=== PATIENT | female | born 1990 | race Hispanic/Latino ===

== ENCOUNTER 2024-02-24 02:51 | Inpatient (IN) | payer BC ==
[2024-02-24] MEDS ORDERED: Sodium Chloride 0.9% 20 ML SDV IV PRN (03:26)
[2024-02-24] MEDS ORDERED: Sodium Chloride 0.9% 10 ML Syringe FLUSH PRN (03:26)
[2024-02-24] MEDS ORDERED: Carboprost Tromethamine 250 MCG/1 mL Vial IM PRN (03:26)
[2024-02-24] MEDS ORDERED: Sodium Chloride 0.9% 2.5 ML Syringe FLUSH PRN (03:26)
[2024-02-24] MEDS ORDERED: Methylergonovine 0.2 MG/1 ML Amp IM PRN (03:26)
[2024-02-24] MEDS ORDERED: Ondansetron 4 MG/2 ML SDV IVPUSH PRN (03:26)
[2024-02-24] MEDS ORDERED: Misoprostol 200 MCG Tab PO PRN (03:26)
[2024-02-24] MEDS: Lactated Ringers 1,000 ML IV SCH (03:59)
[2024-02-24 04:14] LABS: HEMATOCRIT 36.3 % (37.0-47.0); HEMOGLOBIN 11.6 g/dL (12.0-16.0); MEAN CORPUSCULAR HEMOGLOBIN 25.5 pg (28.0-32.0); MEAN CORPUSCULAR VOLUME 79.8 fL (83.0-99.0); MEAN PLATELET VOLUME 9.8 fL (9.4-12.3); PLATELET COUNT,PLT 200 K/uL (150-400); RED BLOOD CELL COUNT 4.55 M/uL (4.10-5.30); WHITE BLOOD CELL COUNT,WBC 9.75 K/uL (3.9-11.3)
[2024-02-24 04:16] LABS: APPEARANCE,URINE CLEAR; BILIRUBIN,URINE NEGATIVE (NEGATIVE); COLOR,URINE YELLOW; GLUCOSE,URINE NEGATIVE (NEGATIVE); KETONES,URINE TRACE mg/dL (NEGATIVE); LEUKOCYTE ESTERASE,URINE TRACE (NEGATIVE); NITRITE,URINE NEGATIVE (NEGATIVE); OCCULT BLOOD,URINE SMALL (NEGATIVE); PROTEIN,URINE NEGATIVE (NEGATIVE); UROBILINOGEN,URINE 0.2 EU/dL (<2.0)
[2024-02-24 04:23] LABS: AMORPHOUS SEDIMENT,URINE FEW (NEGATIVE); BACTERIA,URINE FEW (NEGATIVE); EPITHELIAL CELLS,URINE FEW (NONE-FEW); MUCUS,URINE OCCASIONAL (NONE-MOD); RBC,URINE 0-1 (0-2/HPF)
[2024-02-24 04:53] LABS: A/G RATIO 0.5 (0.9-1.6); ALBUMIN 2.7 g/dL (3.4-5.0); BILIRUBIN TOTAL 0.4 mg/dL (0.2-1.0); CALCIUM 8.8 mg/dL (8.5-10.1); CARBON DIOXIDE,CO2 22.3 mmol/L (21.0-32.0); CREATININE 0.6 mg/dL (0.6-1.0); EST CRCL DRUG DOSING (CG) 142.87 mL/min; POTASSIUM,K 4.1 mmol/L (3.5-5.1); PROTEIN TOTAL,TP 7.7 g/dL (6.4-8.2)
[2024-02-24] MEDS ORDERED: ePHEDrine 50 MG/ML SDV IVPUSH PRN ×2 (08:04→09:35)
[2024-02-24] MEDS ORDERED: Phenylephrine HCl In 0.9% NaCl 1 MG/10 ML Syringe IVPUSH PRN ×2 (08:04→09:35)
[2024-02-24] MEDS ORDERED: dexmedeTOMIDine HCl 200 MCG/2 ML SDV EPIDUR SCH ×2 (08:15→09:45)
[2024-02-24] MEDS ORDERED: Ropivacaine HCl/PF 400 MG in Premix Bag 1 BAG EPIDUR SCH ×2 (08:15→09:45)
[2024-02-24] MEDS: Oxytocin/0.9 % Sodium Chloride 30 UNIT/500 ML BAG IV SCH (21:04)
[2024-02-24] MEDS: Tranexamic Acid in NACL,ISO-OS 1,000 MG/100 ML Bag IV ONE (21:13)
[2024-02-24] MEDS: Misoprostol 200 MCG Tab RECTAL PRN (21:15)
[2024-02-24] MEDS ORDERED: Aluminum Hydroxide/Magnesium Hydroxide/Simethicone Susp 30 ML Cup PO PRN (21:23)
[2024-02-24] MEDS ORDERED: Simethicone 80 MG Tab.Chew PO PRN (21:23)
[2024-02-24] MEDS ORDERED: diphenhydrAMINE 50 MG Cap PO PRN (21:23)
[2024-02-24] MEDS ORDERED: Famotidine 20 MG Tab PO PRN (21:23)
[2024-02-24] MEDS ORDERED: Oxytocin 10 Units/1 ML SDV IM PRN (21:23)
[2024-02-24] MEDS ORDERED: Sennosides 8.6 MG Tab PO PRN (21:23)
[2024-02-24] MEDS: Lidocaine 1% 50 ML MDV INJECT PRN (21:40)
[2024-02-24] MEDS: Water For Irrigation,Sterile 1,000 ML Container IRR PRN (21:40)
[2024-02-24 22:02] LABS: PH,UMBILICAL ARTERIAL 7.269 (7.18-7.38)
[2024-02-24 22:03] LABS: PH,UMBILICAL VENOUS 7.361 (7.25-7.45)
[2024-02-25] MEDS: Benzocaine/Menthol 20%-0.5% Spray 78 GM Cannister TOP PRN
[2024-02-25] MEDS: Witch Hazel Medicated Pads 40/Jar TOP PRN
[2024-02-25 07:27] LABS: BASOPHILS ABSOLUTE AUTO 0.03 K/uL (0.00-0.20); BASOPHILS PERCENT AUTO 0.2 % (0.0-1.0); EOSINOPHILS PERCENT AUTO 0.7 % (0.0-6.0); HEMATOCRIT 32.1 % (37.0-47.0); HEMOGLOBIN 10.1 g/dL (12.0-16.0); IMMATURE GRAN ABSOLUTE AUTO 0.09 K/uL (0.00-0.05); IMMATURE GRAN PERCENT AUTO 0.6 % (0.0-0.4); LYMPHOCYTES PERCENT AUTO 18.9 % (24.0-44.0); MEAN CORPUSCULAR HEMOGLOBIN 25.6 pg (28.0-32.0); MEAN CORPUSCULAR HGB CONC 31.5 g/dL (32.0-36.0); MEAN CORPUSCULAR VOLUME 81.5 fL (83.0-99.0); MEAN PLATELET VOLUME 10.1 fL (9.4-12.3); MONOCYTES PERCENT AUTO 6.1 % (0.0-8.0); NEUTROPHILS ABSOLUTE AUTO 10.86 K/uL (1.80-7.70); NEUTROPHILS PERCENT AUTO 73.5 % (41.0-71.0); PLATELET COUNT,PLT 194 K/uL (150-400); RED BLOOD CELL COUNT 3.94 M/uL (4.10-5.30); WHITE BLOOD CELL COUNT,WBC 14.78 K/uL (3.9-11.3)
[2024-02-25] MEDS: Acetaminophen 500 MG Tab PO PRN (09:07)
[2024-02-25] MEDS: Lanolin 100% Cream 7 GM Tube TOP PRN (21:16)
[2024-02-25] MEDS: Docusate Sodium 100 MG Cap PO PRN (21:16)
[2024-02-26] MEDS: Ibuprofen 800 MG Tab PO PRN (04:15)
== END 2024-02-26 11:05 | disposition home or self-care (01) | DRG 560 ==
LOC: MW.OBCHECK 02:51 → MW.OB 02:53 → MW.OBCHECK 03:27 → MW.OB 03:27 → OBSVTOIN 20:58 → MW.OB 02-25 02:35
PROVIDERS: ADMIT Obstetrics & Gynecology; ATTEND Obstetrics & Gynecology
PROC: 10E0XZZ Delivery of Products of Conception, External Approach (ICD-10-PCS; principal; 2024-02-24)
PROC: 0KQM0ZZ Repair Perineum Muscle, Open Approach (ICD-10-PCS; 2024-02-24)
PROC: 3E0R3BZ Introduction of Anesthetic Agent into Spinal Canal, Percutaneous Approach (ICD-10-PCS; 2024-02-24)
PROC: 00HU33Z Insertion of Infusion Device into Spinal Canal, Percutaneous Approach (ICD-10-PCS; 2024-02-24)
DX: O48.0 Post-term pregnancy (principal); Z3A.40 40 weeks gestation of pregnancy; Z37.0 Single live birth; D62 Acute posthemorrhagic anemia; O34.211 Maternal care for low transverse scar from previous cesarean delivery; O99.214 Obesity complicating childbirth; O99.02 Anemia complicating childbirth; O32.8XX0 Maternal care for other malpresentation of fetus, not applicable or unspecified; O13.4 Gestational [pregnancy-induced] hypertension without significant proteinuria, complicating childbirth; O70.1 Second degree perineal laceration during delivery; O36.5930 Maternal care for other known or suspected poor fetal growth, third trimester, not applicable or unspecified; E66.01 Morbid (severe) obesity due to excess calories
CPT/HCPCS: 36415; 59025; 59409; 59612; 76805; 76805-26; 80053; 81001; 82803; 85025; 85027; 86592; 86850; 86900; 86901; A9270-GY; J2590; J3490; J7120